=== PATIENT | male | born 1995 | race Caucasian/White ===

== ENCOUNTER 2024-02-06 10:07 | Emergency (ER) | payer OTHER, SELFPAY ==
[2024-02-06 10:13] VITALS: BP 140/82; PULSE 89; TEMP 36.8; O2SAT 97; BMI 27.8
--- NOTE | 2024-02-06 10:25 | ED.GENADUL1 ---
HPI HPI - General Adult General Chief complaint: Abdominal Pain Stated complaint: NAUSEA/VOMITTING Time Seen by Provider: 02/06/24 10:11 Source: patient and family Mode of arrival: walk-in Limitations: no limitations History of Present Illness HPI narrative: Patient sounds to ED complaining of nausea vomiting and diarrhea. He ate at a restaurant on Sunday and about 5 hours later he experienced abdominal cramping vomiting and diarrhea. He said the vomiting has calm down but he continues to have explosive diarrhea. No blood in the stool. He reports diffuse abdominal cramping but no specific severe abdominal pain. Vital signs are stable he is not tachycardic there is no fever. He is alert and oriented in no acute distress.He reports just simply drinking water it will go right through him.He was concerned so he came into ED for further evaluation Related Data Home Medications ?Medication ?Instructions ?Recorded ?Confirmed No Known Home Medications 02/06/24 02/06/24 Allergies Allergy/AdvReac Type Severity Reaction Status Date / Time No Known Drug Allergies Allergy Verified 02/06/24 10:12 Opioid HPI Opioid Management Most Recent Opioid Data: No Data to Display Review of Systems ROS Status of ROS 10 or more systems reviewed and unremarkable except as noted in history and below Exam Narrative Exam Narrative: Time Seen: [] Vital Signs: [Per nurse's notes.] General: [Alert] Skin: [Warm, dry, no rash.] Head: [Normocephalic, atraumatic.] Neck: [Supple, trachea midline.] Eye: [Pupils are equal, round and reactive to light, extraocular movements are intact, normal conjunctiva.] Ears, nose, mouth and throat: oral mucosa moist. Cardiovascular: [Regular rate and rhythm, no murmur.] Respiratory: [Lungs are clear to auscultation, respirations are non-labored, breath sounds are equal.] Chest wall: [No tenderness, no deformity.] Gastrointestinal: [Soft, nontender, non distended, normal bowel sounds.] MSK: 5 out of 5 muscle strength x 4 extremities no calf pain or edema Lymphatics: [No lymphadenopathy.] Psychiatric: [Cooperative, appropriate mood & affect.] Neurological: [Alert and oriented to person, place, time, and situation, no focal neurological deficit observed.] Constitutional Vital Signs, click to edit/add: Last Vital Signs Temp 98.2 F 02/06/24 10:13 Pulse 89 02/06/24 10:13 Resp 18 02/06/24 10:13 BP 140/82 02/06/24 10:13 Pulse Ox 97 02/06/24 10:13 O2 Del Method Room Air 02/06/24 10:13 Course Vital Signs Vital signs: Vital Signs Temperature 98.2 F 02/06/24 10:13 Pulse Rate 89 02/06/24 10:13 Respiratory Rate 18 02/06/24 10:13 Blood Pressure 140/82 02/06/24 10:13 Pulse Oximetry 97 02/06/24 10:13 Oxygen Delivery Method Room Air 02/06/24 10:13 Temperature 98.2 F 02/06/24 10:13 Pulse Rate 89 02/06/24 10:13 Respiratory Rate 18 02/06/24 10:13 Blood Pressure 140/82 02/06/24 10:13 Pulse Oximetry 97 02/06/24 10:13 Oxygen Delivery Method Room Air 02/06/24 10:13 Medical Decision Making MDM Narrative Medical decision making narrative: Patient's labs are nonacute. C. difficile negative. Stool cultures and Giardia and Campylobacter were sent out. Given the severity of the diarrhea I will send the patient home on Cipro to cover for potential infectious causes. Patient's potassium is normal. No acute abdominal pain I do not see any indication for CT scan at this time. Of course return to the emergency room if worsening symptoms. Follow-up with family doctor. Patient and family are comfortable care plan for home Differential Diagnosis Differential Diagnosis: Giardia C. difficile Viral gastroenteritis Infectious diarrhea Medical Records Medical records reviewed: Yes I reviewed the patient's medical records Lab Data Lab results reviewed: Yes I reviewed the patient's lab results Labs: Lab Results 02/06/24 02/06/24 02/06/24 Range/Units 10:23 10:49 11:20 WBC 5.5 (4.0-11.0) 10^3/uL RBC 5.30 (4.70-6.10) 10^6/uL Hgb 15.2 (14.0-18.0) g/dL Hct 44.1 (42.0-54.0) % MCV 83.2 (80.0-94.0) fL MCH 28.7 (25.9-34.0) pg MCHC 34.5 (29.9-35.2) g/dL RDW 12.6 (11.0-15.0) % Plt Count 193 (150-450) 10^3/uL MPV 9.8 (9.5-13.5) fL Neut % (Auto) 81.0 H (43.0-75.0) % Lymph % (Auto) 12.3 L (20.5-60.0) % [place] % (Auto) 6.1 (1.7-12.0) % Eos % (Auto) 0.2 L (0.9-7.0) % Baso % (Auto) 0.2 (0.2-2.0) % Neut # (Auto) 4.5 (1.4-6.5) 10^3/uL Lymph # (Auto) 0.7 L (1.2-3.8) 10^3/uL [place] # (Auto) 0.3 (0.3-0.8) 10^3/uL Eos # (Auto) 0.0 (0.0-0.7) 10^3/uL Baso # (Auto) 0.0 (0.0-0.1) 10^3/uL Abs Immat Gran (auto) 0.01 (0.00-0.03) 10^3/uL Imm/Tot Granulo (auto) 0.2 (0.0-0.5) % Sodium 133 L (136-145) mmol/L Potassium 3.9 (3.5-5.1) mmol/L Chloride 97 L (98-107) mmol/L Carbon Dioxide 23.2 (21.0-32.0) mmol/L Anion Gap 16.7 BUN 15.0 (7.0-18.0) mg/dL Creatinine 0.89 (0.70-1.30) mg/dL Est GFR ( Amer) >60 (>=60) Est GFR (Non-Af Amer) >60 (>=60) BUN/Creatinine Ratio 16.9 Glucose 106 (74-106) mg/dL Calcium 9.5 (8.5-10.1) mg/dL Total Bilirubin 0.6 (0.2-1.0) mg/dL AST 13 L (15-37) U/L ALT 24 (16-63) U/L Alkaline Phosphatase 88 (46-116) U/L Total Protein 8.1 (6.4-8.2) g/dL Albumin 4.0 (3.4-5.0) g/dL Globulin 4.1 g/dL Albumin/Globulin Ratio 1.0 Urine Color Yellow (YELLOW) Urine Clarity Clear (CLEAR) Urine pH 6.0 (5.0-9.0) Ur Specific [place] 1.025 (1.005-1.025) Urine Protein 30 A (NEG/TRACE) mg/dL Urine Glucose (UA) Negative (NEGATIVE) mg/dL Urine Ketones Negative (NEGATIVE) mg/dL Urine Occult Blood Small A (NEGATIVE) Urine Nitrite Negative (NEGATIVE) Urine Bilirubin Negative (NEGATIVE) Urine Urobilinogen 0.2 (0.2-1.0) EU/dL Ur Leukocyte Esterase Negative (NEGATIVE) Urine RBC 0-2 (0-2) #/HPF Urine WBC 0-2 A (NONE SEEN) #/HPF Ur Squamous Epith Cells None seen (NONE/RARE) #/LPF Urine Crystals None seen (None Seen) #/HPF Urine Bacteria None seen (NONE SEEN) #/HPF Urine Casts None seen (NONE SEEN) #/LPF Urine Mucus None seen (NONE SEEN) Ur Culture Indicated? No C. difficile Toxin PCR Negative (NEGATIVE) Discharge Plan Discharge Stand Alone Forms: Portal Instructions Chief Complaint: Abdominal Pain Clinical Impression: Diarrhea Patient Disposition: Home, Self-Care Time of Disposition Decision: 12:14 Mode of Transportation: Private Vehicle Prescriptions / Home Meds: No Action No Known Home Medications Print Language: Hebrew Instructions: Acute Diarrhea (ED) Referrals: TUAN LA [Primary Care Provider] - 1 week
[2024-02-06] MEDS: 0.9 % SODIUM CHLORIDE 1,000 ML 1000 ML IV (10:38)
[2024-02-06] MEDS: ONDANSETRON PF 4 MG/2 ML VIAL IV (10:38)
[2024-02-06 10:39] LABS: Basophils Percent Auto 0.2 % (0.2-2.0); Eosinophils Percent Auto 0.2 % (0.9-7.0); Hematocrit 44.1 % (42.0-54.0); Hemoglobin 15.2 g/dL (14.0-18.0); Immature Granulocytes Abs Auto 0.01 10^3/uL (0.00-0.03); Immature Granulocytes Pct Auto 0.2 % (0.0-0.5); Lymphocytes Absolute Auto 0.7 10^3/uL (1.2-3.8); Lymphocytes Percent Auto 12.3 % (20.5-60.0); Mean Corpuscular HGB Conc 34.5 g/dL (29.9-35.2); Mean Corpuscular Hemoglobin 28.7 pg (25.9-34.0); Mean Corpuscular Volume 83.2 fL (80.0-94.0); Mean Platelet Volume 9.8 fL (9.5-13.5); Monocytes Absolute Auto 0.3 10^3/uL (0.3-0.8); Monocytes Percent Auto 6.1 % (1.7-12.0); Neutrophils Absolute Auto 4.5 10^3/uL (1.4-6.5); Platelet Count 193 10^3/uL (150-450); Red Cell Distribution Width 12.6 % (11.0-15.0); White Blood Count 5.5 10^3/uL (4.0-11.0)
[2024-02-06 10:53] LABS: Alanine Aminotransferase 24 U/L (16-63); Alkaline Phosphatase 88 U/L (46-116); Anion Gap 16.7; Aspartate Amino Transferase 13 U/L (15-37); BUN Creatinine Ratio 16.9; Bilirubin Total 0.6 mg/dL (0.2-1.0); Calcium 9.5 mg/dL (8.5-10.1); Carbon Dioxide 23.2 mmol/L (21.0-32.0); Chloride 97 mmol/L (98-107); Estimated GFR (African America >60 (>=60); Estimated GFR (Non-African Ame >60 (>=60); Globulin 4.1 g/dL; Glucose 106 mg/dL (74-106); Potassium 3.9 mmol/L (3.5-5.1); Sodium 133 mmol/L (136-145); Total Protein 8.1 g/dL (6.4-8.2)
[2024-02-06 11:42] LABS: Bilirubin Urine NEGATIVE (NEGATIVE); Blood Urine SMALL (NEGATIVE); Clarity Urine CLEAR (CLEAR); Color Urine YELLOW (YELLOW); Glucose Urine UA NEGATIVE (NEGATIVE); Ketones Urine NEGATIVE (NEGATIVE); Leukocyte Esterase Urine NEGATIVE (NEGATIVE); Nitrite Urine NEGATIVE (NEGATIVE); Protein Urine 30 mg/dL (NEG/TRACE); Specific Gravity Urine 1.025 (1.005-1.025); Urobilinogen Urine 0.2 EU/dL (0.2-1.0)
[2024-02-06 11:43] LABS: Urine Microscopic Indicated YES
[2024-02-06 11:49] LABS: Bacteria Urine NONE SEEN #/HPF (NONE SEEN); Cast Seen? NONE SEEN #/LPF (NONE SEEN); Crystals Seen? None Seen #/HPF (None Seen); Mucus Urine NONE SEEN (NONE SEEN); RBC Urine 0-2 #/HPF (0-2); Squamous Epithelial Cell Urine NONE SEEN #/LPF (NONE/RARE); Urine Culture Indicated NO; WBC Urine 0-2 #/HPF (NONE SEEN)
[2024-02-06 12:07] LABS: C. Difficile PCR NEGATIVE (NEGATIVE)
[2024-02-06 12:20] VITALS: BP 113/70; PULSE 78; O2SAT 99
[2024-02-07 15:10] LABS: Cryptosporidium EIA Negative (Negative); Giardia lamblia Ag, EIA Negative (Negative)
== END 2024-02-06 12:24 | disposition home or self-care (01) ==
PROVIDERS: Emergency Provider Emergency Medicine; PCP Nurse Practitioner Family
DX: R19.7 Diarrhea, unspecified (principal)
CPT/HCPCS: 36415; 80053; 81001; 85025; 87045; 87046; 87328; 87329; 87427; 87493; 87507; 96361; 96374; 99284